=== PATIENT | male | born 1955 | race Caucasian/White ===

== ENCOUNTER 2018-01-31 21:57 | Emergency (ER) | payer BC, MEDICARE ==
[2018-01-31 22:08] VITALS: BP 192/126
--- NOTE | 2018-01-31 22:09 | ER Report ---
History and Physical Time Seen By MD: 22:07 HPI/ROS CHIEF COMPLAINT: Left toe redness and swelling HISTORY OF PRESENT ILLNESS: 62-year-old male with a [id number] squirrel bite to his left great toe. Patient notes some discoloration and swelling and bruising of his toe over the last 2 days.. He was bitten by a squirrel. He describes a tiny puncture wound that occurred originally. A Vesta chronically on doxycycline for treatment and prevention of rosacea. REVIEW OF SYSTEMS: Respiratory: No cough, no dyspnea. Cardiovascular: No chest pain, no palpitations. Gastrointestinal: No vomiting, no abdominal pain. Musculoskeletal: No back pain. Allergies: Coded Allergies: hydrocodone (Verified Adverse Reaction, Mild, DIZZINESS, 01/31/18) Home Meds Active Scripts Cephalexin 500 Mg Tab (KEFLEX 500 MG TAB) 500 Mg Tablet, 500 MG PO TID for infection, #21 TAB Prov:HECTOR LEAVITT DO 01/31/18 Reviewed Nurses Notes: Yes Old Medical Records Reviewed: Yes Constitutional Vital Sign - Last 24 Hours 01/31/18 22:08 Temp 97.9 Pulse 68 Resp 16 B/P (MAP) 192/126 Pulse Ox 94 O2 Delivery Room Air Physical Exam General appearance: Alert no distress. Respiratory: Chest is non tender, lungs are clear to auscultation. Cardiac: Regular rate and rhythm Extremity: Examination of the left foot reveals a mildly erythematous, somewhat cyanotic left small toe. There is a small amount of edema noted. There is no open wound or scab noted DIFFERENTIAL DIAGNOSIS: After history and physical exam differential diagnosis was considered for puncture wound, cellulitis, osteomyelitis, retained foreign body. Medical Decision Making ED Course/Re-evaluation ED Course Patient was admitted to an examination room. H&P was done. The differential diagnosis was considered. On clinical examination. Patient has a red left small toe with the evidence of mild cellulitis. Patient be treated with Keflex 500 mg 3 times a day. Patient's advised warm soaks. He is also advised some ibuprofen 3 times a day. Patient's blood pressure was also notably elevated on this visit. Patient may have forgotten to take his amlodipine. He is advised to take that tonight. And follow-up with his primary care will resolve in 2-3 days to get his blood pressure rechecked. Decision to Disposition Date: Jan 31, 2018 Decision to Disposition Time: 22:17 Depart Departure Latest Vital Signs Vital Signs Date Time Temp Pulse Resp B/P (MAP) Pulse Ox O2 Delivery O2 Flow Rate FiO2 01/31/18 22:08 97.9 68 16 192/126 94 Room Air Impression: Primary Impression: Animal bite Additional Impressions: Cellulitis of small toe of left foot Hypertension Hyperlipidemia Elevated blood pressure reading Condition: Improved Disposition: HOME OR SELF-CARE New Scripts Cephalexin 500 Mg Tab (KEFLEX 500 MG TAB) 500 Mg Tablet 500 MG PO TID for infection, #21 TAB Prov: HECTOR LEAVITT DO 01/31/18 Patient Instructions: Cellulitis (ED) Additional Instructions: Take ibuprofen 200 mg 2-3 tablets 3 times a day with food Take your blood pressure medicine tonight when you get ready for bed Take your antibiotic 3 times a day Old with your primary care doctor upon returning home to [place] in 2-4 days. Problem Qualifiers Additional Impressions: Hypertension Hypertension type: essential hypertension Qualified Codes: I10 - Essential ( primary) hypertension Hyperlipidemia Hyperlipidemia type: unspecified Qualified Codes: E78.5 - Hyperlipidemia, unspecified HECTOR LEAVITT DO Jan 31, 2018 22:09
[2018-01-31] MEDS ORDERED: CEPHALEXIN MONO 500 MG CAP PO ONE (22:20)
[2018-01-31] MEDS ORDERED: CEPHALEXIN 500 MG CAP TH 2 CAP/BOTTLE PO ONE ×2 (22:20)
[2018-01-31] MEDS ORDERED: CEPH500T7 PO (22:41)
== END 2018-01-31 22:51 | disposition home or self-care (01) ==
LOC: ER 22:10
DX: S91.152A Open bite of left great toe without damage to nail, initial encounter (principal); L03.032 Cellulitis of left toe; I10 Essential (primary) hypertension; E78.5 Hyperlipidemia, unspecified; R03.0 Elevated blood-pressure reading, without diagnosis of hypertension; W53.21XA Bitten by squirrel, initial encounter
CPT/HCPCS: 99283